=== PATIENT | female | born 2000 | race Hispanic/Latino ===

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

== ENCOUNTER 2021-08-07 19:57 | Emergency (ER) | payer OTHER ==
[2021-08-08 12:09] LABS: SARS-CoV-2 PCR by NAA Not Detected (NotDetected)
== END 2021-08-07 21:30 | disposition home or self-care (01) ==
LOC: ERS 19:57
DX: J02.9 Acute pharyngitis, unspecified (principal); Z20.822 Contact with and (suspected) exposure to COVID-19
CPT/HCPCS: 99283; U0003; U0005

== ENCOUNTER 2021-12-03 20:50 | Emergency (ER) | payer OTHER | END 2021-12-03 22:21 | disposition home or self-care (01) | LOC: ERS 20:50 | DX: L42 Pityriasis rosea (principal) | CPT/HCPCS: 99282 ==